=== PATIENT | female | born 1950 | race African-American/Black ===

== ENCOUNTER 2017-05-12 13:25 | Outpatient (CLI) | payer OTHER ==
[~2017-05-12 13:25] MED LIST: BETIMOL5 M2 OP; LABETALOL HCL100 MG ORAL; LATANOPROST2.5 ML BOTH EYES; NORMODYNE100 MG ORAL; PAXIL20 MG ORAL; SIMVASTATIN20 MG ORAL; TAPAZOLE10 MG ORAL; TIMOPTIC 0.25%1 DROP BOTH EYES
[2017-05-12] MEDS ORDERED: POTASSIUM99 M3 PO (13:48)
[2017-05-12] MEDS ORDERED: HYDROCHLOROTH12.5 M2 ORAL (13:48)
[2017-05-12] MEDS ORDERED: ALLOPURINOL100 M1 ORAL (13:48)
--- NOTE | 2017-05-12 13:56 | GI Progress Note ---
Assessment/Plan Problems: (1) Rectal bleeding ICD Codes: K62.5 - Rectal bleeding SNOMED: 65858974 (2) Depression ICD Codes: F32.9 - Depression SNOMED: 24666072 (3) Colon polyp ICD Codes: K63.5 - Colon polyp SNOMED: 78897938 (4) Constipation ICD Codes: K59.00 - Constipation SNOMED: 49156870 Status: stable Status Narrative Seen with Dr. Wade. Assessment/Plan Rx anusol HC RTC x 1 week if problem persists will consider Flex sig with banding repeat colonoscopy 2018 The patient was seen and examined at bedside and all new and available data was reviewed in the patients chart. I agree with the above findings, impression and plan. (Patient seen earlier today. Signature stamp does not reflect patient encounter time.). -Carlos Wade MD Subjective Subjective rectal bleed daily, bright red blood takes prune-lax Objective T 97.9 BP 115/69 P 86 95 RA WT 173.6 General Appearance: no apparent distress, alert Cardiovascular: normal rate Respiratory/Chest: normal breath sounds, no respiratory distress Abdominal Exam: normal bowel sounds, non tender, soft Extremities: normal range of motion Enedina Soto N.P. May 12, 2017 13:56 CARLOS WADE May 13, 2017 13:08
== END 2017-05-12 14:00 | disposition home or self-care (01) ==
LOC: PAN 13:25
DX: K62.5 Hemorrhage of anus and rectum (principal); F32.9 Major depressive disorder, single episode, unspecified; K63.5 Polyp of colon; K59.00 Constipation, unspecified
CPT/HCPCS: 99211

== ENCOUNTER 2017-12-20 13:01 | Outpatient (CLI) | payer OTHER, MEDICARE ==
[~2017-12-20 13:01] MED LIST changes: +ALLOPURINOL100 M1 ORAL; +HYDROCHLOROTH12.5 M2 ORAL; +POTASSIUM99 M3 PO
--- NOTE | 2017-12-20 14:28 | GI Progress Note ---
Assessment/Plan Problems: (1) Rectal bleeding ICD Codes: K62.5 - Rectal bleeding SNOMED: 92669142 (2) Colon polyp ICD Codes: K63.5 - Colon polyp SNOMED: 73886210 (3) Constipation ICD Codes: K59.00 - Constipation SNOMED: 92942957 (4) Diverticulosis ICD Codes: K57.90 - Diverticulosis SNOMED: 131679585 (5) Internal hemorrhoid ICD Codes: K64.8 - Internal hemorrhoid SNOMED: 24046943 Status: unchanged Status Narrative Seen with Dr. Wade. Assessment/Plan Endoscopy Procedure Note Indication for Procedure: screening Procedures Performed: colonoscopy Operative Findings/Diagnosis: 2 polyps LOVEARIC - Nov 26, 2014 12:04 will schedule colonoscopy pending prior authorization. - CLD & (Nulytely/Suprep/Movi-Prep) prep instructions given and acknowledged by patient. - NPO @ MN day prior procedure explained. cont anusol HC BID Subjective Subjective Patient continues to have heavy rectal bleeding. She express initial relief from the Rx Anusol, but now has no effect. In addition, she c/o of fecal incontinence x 1 described as watery and dark. Objective T 98.3 Bp 139/84 P 64 96 RA General Appearance: WD/WN, no apparent distress, alert, overweight Cardiovascular: normal rate Respiratory/Chest: normal breath sounds, no respiratory distress Abdominal Exam: normal bowel sounds, non tender, soft Extremities: normal range of motion, non-tender Enedina Soto N.P. Dec 20, 2017 14:28
== END 2017-12-20 13:34 | disposition home or self-care (01) ==
LOC: PAN 13:01
DX: K62.5 Hemorrhage of anus and rectum (principal); K63.5 Polyp of colon; K59.00 Constipation, unspecified; K57.90 Diverticulosis of intestine, part unspecified, without perforation or abscess without bleeding; K64.8 Other hemorrhoids
CPT/HCPCS: 99212

== ENCOUNTER 2018-01-07 09:02 | Day surgery (SDC) | payer OTHER, MEDICARE ==
[2018-01-07] VITALS (9 sets, daily range): BP systolic 119–148; BP diastolic 72–90
[~2018-01-07] VITALS: Ht 160 cm; Wt 74.8 kg
[2018-01-07] MEDS ORDERED: METHIMAZOLE5 MG PO (10:32)
[2018-01-07] MEDS ORDERED: Lidocaine 1% MPF 10mg/ml 5ml ONE (11:50)
[2018-01-07] MEDS ORDERED: LR 1000ml ONE (11:50)
[2018-01-07] MEDS ORDERED: Propofol 200mg/20ml IV ONE (11:50)
--- NOTE | 2018-01-07 11:55 | Pre-Procedure Note/Attestation ---
Pre-Procedure Note/Attestation Complete Prior to Procedure Planned Procedure: not applicable Procedure Narrative: colonoscopy Indications for Procedure Pre-Operative Diagnosis: screening Attestation I attest that I discussed the nature of the procedure; its benefits; risks and complications; and alternatives (and the risks and benefits of such alternatives ), prior to the procedure, with the patient (or the patient's legal farm loan representative). I attest that, if there was a reasonable possibility of needing a blood transfusion, the patient (or the patient's legal farm loan representative) was given the [facility] standardized written summary, pursuant to the [place] Blood Safety Act ([place] Health and Safety Code # 1645, as amended). I attest that I re-evaluated the patient just prior to the surgery and that there has been no change in the patient's H&P, except as documented below: ARIC ALEMAN Jan 07, 2018 11:54
--- NOTE | 2018-01-07 11:55 | Short Stay Surgery H&P ---
History of Present Illness History of Present Illness Chief Complaint see recent consult note HPI Eliana Parada is a 67 year old female who was admitted on for Rectal Bleeding Patient History Allergies: Coded Allergies: No Known Allergies (Unverified , 11/07/14) PAST MEDICAL HISTORY: Past Surgeries: Social History: Medication History Scheduled Allopurinol* (Allopurinol*), 100 MG ORAL DAILY, (Reported) Hydrochlorothiazide* (Hydrochlorothiazide*), 12.5 MG ORAL DAILY, (Reported) Labetalol Hcl* (Normodyne*), 100 MG ORAL EVERY 12 HOURS, (Reported) Latanoprost* (Xalatan*), 1 DROP BOTH EYES BEDTIME, (Reported) Methimazole (Methimazole), 2.5 MG PO DAILY, (Reported) Paroxetine Hcl* (Paxil*), 20 MG ORAL DAILY, (Reported) Simvastatin (Zocor), 20 MG ORAL BEDTIME, (Reported) Timolol Maleate (Timolol Maleate), 1 DROP BOTH EYES DA, (Reported) Miscellaneous Medications Potassium Gluconate (Potassium), 99 MG PO, (Reported) Physical Exam Vital Signs Last Vital Signs Date Time Temp Pulse Resp B/P (MAP) Pulse Ox O2 Delivery O2 Flow Rate FiO2 01/07/18 10:04 97.2 65 18 142/87 98 Room Air Plan Attestation Are the patient's medical conditions optimized for surgery? ARIC ALEMAN Jan 07, 2018 11:55
--- NOTE | 2018-01-07 12:12 | Anethesia Preoperative Eval ---
Anesthesia Pre-op PMH/ROS General Date of Evaluation: Jan 07, 2018 Time of Evaluation: 12:09 Anesthesiologist: shahla ASA Score: ASA 2 Mallampati Score Class I : Soft palate, uvula, fauces, pillars visible Class II: Soft palate, uvula, fauces visible Class III: Soft palate, base of uvula visible Class IV: Only hard plate visible Mallampati Classification: Class II Surgeon: sandi Diagnosis: rectal bleed Surgical Procedure: Colonoscopy Anesthesia History: none Family History: no anesthesia problems Allergies: Coded Allergies: No Known Allergies (Unverified , 11/07/14) Medications: see eMAR Past Medical History Cardiovascular: Reports: HTN, Denies: CAD, HI, valve dz, arrhythmia, other Pulmonary: Denies: asthma, COPD, MAYELIN, other Gastrointestinal/Genitourinary: Reports: GERD, Denies: CRI, ESRD, other Neurologic/Psychiatric: Denies: dementia, CVA, depression/anxiety, TIA, other Endocrine: Reports: hypothyroidism HEENT: Reports: glaucoma, Denies: cataract (L), cataract (R), [place] (L), [place] (R), other Hematology/Immune: Reports: anemia, Denies: DVT, bleeding disorder, other Musculoskeletal/Integumentary: Denies: OA, RA, DJD, DDD, edema, other Other: obesity PSxH Narrative: colonoscopy Anesthesia Pre-op Phys. Exam Physician Exam Last Vital Signs Date Time Temp Pulse Resp B/P (MAP) Pulse Ox O2 Delivery O2 Flow Rate FiO2 01/07/18 10:04 97.2 65 18 142/87 98 Room Air Constitutional: NAD Neurologic: CN 2-12 intact Cardiovascular: RRR Respiratory: CTA Gastrointestinal: S/NT/ND Airway Exam Mallampati Classification 3 Mallampati Score: Class II MO: full Neck: thick TMD: 2fb ROM: full Dentures: no upper, no lower Anesthesia Pre-op A/P Studies Pre-op Studies: EKG - sr Risk Assessment & Plan Plan: mac Status Change Before Surgery: No Pre-Antibiotics Drug: none MEGAN ANGEL CRNA Jan 07, 2018 12:12
--- NOTE | 2018-01-07 12:15 | Endoscopy Procedure Note ---
Endoscopy Procedure Note Indication for Procedure: screening colon Procedures Performed: colonoscopy Operative Findings/Diagnosis: 2 polyps Specimen: yes Pt Tolerated Procedure Well: Yes Estimated Blood Loss: none Anesthesiologist: bj Anesthesia: MAC Implant(s) used?: No 50 yrs or older w/o bx or poly: No 10yrs. F/U not recommended: Yes If not recommended, why?: Above average risk 10 yrs. F/U needed: Yes 18 years or older w/prev. colo: Yes <3yrs. since last colonoscopy: No ARIC ALEMAN Jan 07, 2018 12:15
--- NOTE | 2018-01-07 12:42 | Immediate Post-Op Evaluation ---
Immediate Post-Op Evalulation Immediate Post-Op Evalulation Procedure: colonoscopy Date of Evaluation: Jan 07, 2018 Time of Evaluation: 12:20 IV Fluids: 500 Blood Pressure Systolic: 123 Blood Pressure Diastolic: 72 Pulse Rate: 68 Respiratory Rate: 14 O2 Sat by Pulse Oximetry: 99 Temperature (Fahrenheit): 97.1 Nausea: No Vomiting: No Complications 0 Patient Status: awake, reacts, patent Hydration Status: adequate Drug: none MEGAN ANGEL CRNA Jan 07, 2018 12:42
--- NOTE | 2018-01-07 16:45 | Procedure Note ---
DATE OF PROCEDURE: 01/07/2018 PROCEDURE: Colonoscopy with biopsy. ANESTHESIA: Per JAGDISH, Alexa Gamboa. INSTRUMENT: Olympus adult flexible colonoscope. INDICATION: 1. Screening colonoscopy evaluation. 2. Rectal bleeding. 3. History of colonic polyps. REASON FOR PROCEDURE: The procedure, risks, benefits, and possible consequences, including hemorrhage, aspiration, perforation and infection, and alternative treatments, were explained to the patient/legal guardian by Dr. Carlos Wade and the patient/legal guardian understood and accepted these risks. PROCEDURE: After informed consent was obtained and the patient was adequately sedated, first rectal exam performed which was positive for internal hemorrhoids. Then, scope was advanced from rectum into the cecum documented by appendiceal orifice, ileocecal valve, and right upper quadrant palpation. Quality of prep was very good. The patient had evidence of mild diffuse melanosis coli, more prominent in the right colon compared to left. The patient had two polyps both small removed with the cold biopsy forceps technique, one in transverse colon and one in the sigmoid. No evidence of any diverticulosis. Retroflexion of rectum showed evidence of medium-sized internal hemorrhoids. FINDINGS: 1. Poor colonoscopy examination. 2. Mild melanosis coli. 3. Two colonic polyp removed, see above for details. 4. Internal hemorrhoids. RECOMMENDATIONS: 1. Followup biopsy results and treat accordingly. 2. We will recommend repeat colonoscopy in 5 years. Carlos Wade M.D. DR: Caleb JOB#: [id number] CC:
--- NOTE | 2018-01-10 19:33 | Cardiology Report ---
APPROVED REPORT EKG Measurement Heart [id number] FL [id number] [id number] Normal sinus rhythm Cannot rule out Anterior infarct, age undetermined Abnormal ECG
[2018-01-11 07:29] VITALS: BP 141/78
--- NOTE | 2018-01-11 07:29 | 48 Hour Post Anesthesia Eval ---
Post Anesthesia Evaluation Procedure: colonoscopy Date of Evaluation: Jan 11, 2018 Time of Evaluation: 07:29 Blood Pressure Systolic: 141 0: 78 Pulse Rate: 61 Respiratory Rate: 14 O2 Sat by Pulse Oximetry: 100 Airway: patent Nausea: No Vomiting: No Hydration Status: adequate Cardiopulmonary Status: stable Mental Status/LOC: patient returned to baseline Follow-up Care/Observations: na Post-Anesthesia Complications: none Follow-up care needed: N/A MEGAN ANGEL CRNA Jan 11, 2018 07:29
== END 2018-01-07 13:25 | disposition home or self-care (01) ==
LOC: GAS 09:02
DX: Z12.11 Encounter for screening for malignant neoplasm of colon (principal); K63.5 Polyp of colon; D12.5 Benign neoplasm of sigmoid colon; K62.5 Hemorrhage of anus and rectum; K64.8 Other hemorrhoids; I10 Essential (primary) hypertension; K21.9 Gastro-esophageal reflux disease without esophagitis; E03.9 Hypothyroidism, unspecified
CPT/HCPCS: 45380; 93005; J2704; J7120; 94003; 94150

== ENCOUNTER 2018-01-24 14:37 | Outpatient (CLI) | payer OTHER, MEDICARE ==
[~2018-01-24 14:37] MED LIST changes: +METHIMAZOLE5 MG PO
[2018-01-24 14:50] VITALS: BP 132/77
--- NOTE | 2018-01-24 15:19 | GI Progress Note ---
Assessment/Plan Problems: (1) Rectal bleeding ICD Codes: K62.5 - Rectal bleeding SNOMED: 96852859 (2) Constipation ICD Codes: K59.00 - Constipation SNOMED: 67228866 (3) Internal hemorrhoid ICD Codes: K64.8 - Internal hemorrhoid SNOMED: 83383303 Status: stable Status Narrative Seen with Dr. Wade. Assessment/Plan s/p colonoscopy FINDINGS: 1. Poor colonoscopy examination. 2. Mild melanosis coli. 3. Two colonic polyp removed, see above for details.>> melanosis coli 4. Internal hemorrhoids. RECOMMENDATIONS: cont anusol HC RTC x 6 months repeat colonoscopy x 5 years Subjective Subjective rectal bleed, had an episode yesterday bled yesterday Objective Last 24 Hour Vital Signs Date Time Temp Pulse Resp B/P (MAP) Pulse Ox O2 Delivery O2 Flow Rate FiO2 01/24/18 14:50 98.1 64 16 132/77 98.1 General Appearance: WD/WN, no apparent distress, alert Cardiovascular: normal rate Respiratory/Chest: normal breath sounds, no respiratory distress Abdominal Exam: normal bowel sounds, non tender, soft Extremities: normal range of motion, non-tender Enedina Soto N.P. Jan 24, 2018 15:19
== END 2018-01-24 15:09 | disposition home or self-care (01) ==
LOC: PAN 14:37
DX: K62.5 Hemorrhage of anus and rectum (principal); K59.00 Constipation, unspecified; K64.8 Other hemorrhoids; K63.5 Polyp of colon
CPT/HCPCS: 99212